=== PATIENT | male | born 2000 | race Caucasian/White ===

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

== ENCOUNTER 2023-06-21 20:10 | Emergency (ER) | payer OTHER ==
[2023-06-21] MEDS ORDERED: AMOX TR/POT CLAV 875MG/125MG TABLETS (FP) PO ONE (20:28)
[2023-06-21 20:32] VITALS: BP 123/86; PULSE 66; RESP 18; TEMP 97.7; BMI 22.8
[2023-06-21] MEDS ORDERED: AMOX TR/POT CLAV 875MG/125MG TABLETS (FP) ONE (20:48)
[2023-06-21] MEDS: AMOX TR/POT CLAV 875MG/125MG TABLETS (FP) PO ONE (20:52)
== END 2023-06-21 22:38 | disposition home or self-care (01) ==
LOC: FER 20:10
DX: S70.211A Abrasion, right hip, initial encounter (principal); W54.0XXA Bitten by dog, initial encounter
CPT/HCPCS: 99283-25